=== PATIENT | male | born 1935 | race Caucasian/White ===

== ENCOUNTER 2018-10-03 04:25 | Emergency (ER) | payer MEDICARE, OTHER ==
[2018-10-03] MEDS ORDERED: ASPIRIN 325 MG TABLET PO ONE (04:27)
[2018-10-03] MEDS ORDERED: 0.9 % SODIUM CHLORIDE 1000ML 1,000 ML IV PRN (04:27)
[2018-10-03] MEDS ORDERED: ASPIRIN 81 MG CHEWABLE TABLET PO ONE (04:32)
[2018-10-03] MEDS ORDERED: HEPARIN SODIUM 1000 UNIT/1 ML 10ML VIAL IVP ONE (04:34)
--- NOTE | 2018-10-03 04:34 | Emergency Department Record ---
History of Present Illness - General Chief Complaint: Chest Pain Stated Complaint: SHOULDER PAIN Time Seen by Provider: 10/03/18 04:27 Source: Patient, Family Mode of Arrival: Ambulatory Limitations: No limitations - History of Present Illness Initial Comments: 82 yo male presents short of breath and discomfort in the chest. The onset was about 2:30am. He denies a known history of CAD. He has been having some shoulder pain recently as well, but the shortness of breath started during the night. He feels like a heavy pressure on the chest. He does not have corn detasseler. He does not have a corn detasseler. PCP is Dr Hyun MOORE Complaint: Chest pain, Other (Dyspnea) -: Hour(s) (2.5) Onset: During rest Pain Location: Substernal, Left chest Pain Radiation: RUE, LUE Severity: Moderate Quality: Heaviness Consistency: Constant Improves With: Nothing Worsens With: Exertion Anginal Symptoms: Dyspnea Other Symptoms: Other - Related Data Home Medications Medication Instructions Recorded Confirmed Last Taken No Home Med [NO HOME MEDS] 10/03/18 10/03/18 Unknown Allergies Allergy/AdvReac Type Severity Reaction Status Date / Time No Known Drug Allergies Allergy Verified 10/03/18 04:35 Review of Systems Constitutional: Denies: Chills, Fever, Malaise, Weakness Eyes: Denies: Eye discharge ENT: Denies: Congestion, Throat pain Respiratory: Reports: Dyspnea. Denies: Cough Cardiovascular: Reports: Chest pain. Denies: Palpitations, Syncope Endocrine: Reports: Fatigue. Denies: Polydipsia, Polyuria Gastrointestinal: Denies: Abdominal pain, Diarrhea, Nausea, Vomiting Genitourinary: Denies: Dysuria, Frequency Musculoskeletal: Denies: Arthralgia, Back pain, Joint swelling, Myalgia Skin: Denies: Bruising, Change in color, Rash Neurological: Denies: Confusion, Headache Psychiatric: Denies: Anxiety Hematological/Lymphatic: Denies: Easy bleeding, Easy bruising Physical Exam - General General Appearance: Alert, Oriented x3, Mild distress, Anxious Limitations: No limitations - Head Head exam: Atraumatic, Normal inspection - Eye Eye exam: Normal appearance. negative: Conjunctival injection, Scleral icterus - ENT ENT exam: Normal exam Ear exam: Normal external inspection Nasal Exam: Normal inspection Mouth exam: Normal external inspection - Neck Neck exam: Normal inspection - Respiratory Respiratory exam: Accessory muscle use, Prolonged expiratory, Rales, Respiratory distress (mild), Wheezes. negative: Normal lung sounds bilaterally , Decreased breath sounds - Cardiovascular Cardiovascular Exam: Regular rate, Normal rhythm, Normal heart sounds - GI/Abdominal GI/Abdominal exam: Soft. negative: Tenderness - Rectal Rectal exam: Deferred - exam: Deferred - Extremities Extremities exam: Pedal edema - Back Back exam: Denies: CVA tenderness (R), CVA tenderness (L) - Neurological Neurological exam: Alert, Oriented X3 - Psychiatric Psychiatric exam: Anxious - Skin Skin exam: Diaphoretic Course - Reevaluation(s) Reevaluation #1: No prior EKG on the EMR 10/03/18 04:31 10/03/18 04:37 EKG #1: 04:28 Rate: 111 Rhythm: atrial fibrillation [place]: normal Intervals: Qtc 468,LBBB ST segments: LBBB no old Prior: 10/03/18 04:42 Given the symptoms of chest heaviness with LBBB MCG paged 10/03/18 04:[address] Silva. He recommended paging Dr Urena of interventional cardiology 10/03/18 04:51 Dr Urena was contacted. He reviewed the EKG. He recommends stat transfer for possible cath with micro lab analyst activity EMS was paged out for transfer 10/03/18 04:59 EKG #2: Rate: 110 Rhythm: sinus tach [place]: normal Intervals: LBBB ST segments: LBBB Prior: #1 10/03/18 05:02 Troponin is elevated at 0.066 with elevated BNP of 3750 10/03/18 05:03 CR is 1.2 Nitro is titrating BP improving Still states feels significant chest pressure EMS in the ED for transfer to [facility] ED where he was accepted by Dr Chaves Medical Decision Making - Lab Data Result diagrams: 10/03/18 04:30 10/03/18 04:30 Disposition Disposition: Discharge Clinical Impression: Chest pain, Unstable angina, Acute SC, Hypertensive emergency Disposition: Acute Care Hospital Transfer Transfer To: [facility] Reason For Transfer: Chest Pain Possible AMI Accepting Physician: Ayanna Time Discussed w/Accepting Physician: 04:56 Condition: (3) Guarded Forms: Patient Portal Access Time of Disposition: 04:56 Quality - Quality Measures Quality Measures: N/A - Blood Pressure Screening Does Patient Have Any of the Following: No Blood Pressure Classification: Hypertensive Reading Systolic Measurement: 171 Diastolic Measurement: 102 Screening for High Blood Pressure: < Pre-Hypertensive BP, F/U Documented > [ [id number]] Pre-Hypertensive Follow-up Interventions: Referral to alternative/primary care provider.
[2018-10-03] MEDS ORDERED: MORPHINE SULFATE 10 MG/ML VIAL IVP ONE (04:39)
[2018-10-03 04:40] LABS: HEMOGLOBIN 16.7 gm/dl (14.0-18.0); RED BLOOD COUNT 5.45 M/uL (4.40-5.70); WHITE BLOOD COUNT W/O DIFF 11.5 K/uL (4.2-12.2)
[2018-10-03 04:41] LABS: BASO % 0.4 % (0-6); EOS % 1.8 % (0-6); GRAN % 71.1 % (47-80); LYMPH % 22.2 % (16-45); MEAN CELL VOLUME 93.6 fl (81-97); MEAN CORPUSCULAR HEMOGLOBIN 30.6 pg (27-33); MEAN CORPUSCULAR HGB CONC 32.7 g/dl (32-36); MEAN PLATELET VOLUME 8.9 fl (7.4-10.4); MONO % 4.5 % (0-9); PLATELET COUNT 326 K/uL (130-400); RED CELL DISTRIBUTION WIDTH 13.6 % (11.5-14.5)
[2018-10-03] MEDS ORDERED: HEPARIN SODIUM/D5W 25,000 UNITS/500 ML BAG IV SCH (04:45)
[2018-10-03] MEDS ORDERED: NITROGLYCERIN/D5W 50 MG/250 ML ML IV SCH (04:45)
[2018-10-03 04:49] LABS: BLOOD UREA NITROGEN 28 mg/dL (8-23); CREATININE 1.2 mg/dL (0.7-1.2); EST GLOMERULAR FILTRATION RATE > 60 mL/min
[2018-10-03 04:50] LABS: TOTAL PROTEIN 7.4 g/dL (6.6-8.7)
[2018-10-03 04:52] LABS: GLUCOSE,RANDOM 171 mg/dL (74-109)
[2018-10-03 04:53] LABS: PARTIAL THROMBOPLASTIN TIME 25.8 SECONDS (24.5-39.1); PROTHROMBIN TIME (PATIENT) 9.7 SECONDS (9.5-12.1)
[2018-10-03 04:54] LABS: ALT/SGPT 25 U/L (<41); AST/SGOT 23 U/L (10.0-50.0)
[2018-10-03 04:55] LABS: ALB/GLOB RATIO 1.5 (1.1-1.8); ALBUMIN 4.4 g/dL (4.0-5.0); ALKALINE PHOSPHATASE 94 U/L (40-129)
[2018-10-03] MEDS ORDERED: FUROSEMIDE IV 40MG/4ML VIAL IVP ONE (05:03)
--- NOTE | 2018-10-04 14:35 | RADIOLOGY REPORT ---
EXAM: PORTABLE SEMI-UPRIGHT CHEST HISTORY: CHEST AND LEFT SHOULDER PAIN FOR 2-3 HOURS. TECHNIQUE: A portable semi-upright view of the chest was obtained. Comparison: None. FINDINGS: The heart is mildly enlarged. There is patchy air space disease within the mid and lower lungs bilaterally. No conclusive pleural effusion. Suggestion of emphysematous change/COPD. IMPRESSION: PATCHY AIR SPACE DISEASE PRIMARILY WITHIN THE MID AND LOWER LUNGS BILATERALLY. MILD CARDIOMEGALY. JOB NUMBER: [id number] [facility]
== END 2018-10-03 05:22 | disposition short-term general hospital (02) ==
LOC: ER 04:25
DX: I21.9 Acute myocardial infarction, unspecified (principal); I16.1 Hypertensive emergency; I20.0 Unstable angina; I23.8 Other current complications following acute myocardial infarction; R06.00 Dyspnea, unspecified
CPT/HCPCS: 51702; 99285 ×2; 96365; 96366; 96375; 96368; 85025; 85730; 85610; 80053; 84484; 83880; 71045; 93005; 93010; J2270; J1940